=== PATIENT | male | born 1965 | race African-American/Black ===

== ENCOUNTER 2017-10-16 13:17 | Emergency (ER) | payer OTHER ==
[~2017-10-16] VITALS: Ht 190.5 cm; Wt 152.3 kg
[2017-10-16] MEDS ORDERED: LABE100 PO (13:27)
[2017-10-16] MEDS ORDERED: ASPI-891 PO (13:27)
[2017-10-16] MEDS ORDERED: DIGO-44 PO (13:27)
[2017-10-16] MEDS ORDERED: IBUPROFEN 600 MG TABLET PO ONE (15:15)
[2017-10-16 15:52] LABS: BASOPHILS % (AUTO) 0.5 % (0.0-2.0); EOSINOPHILS % (AUTO) 2.7 % (1.0-6.0); HEMATOCRIT 41.5 % (41-53); LYMPHOCYTES # (AUTO) 1.4 K/uL (1.0-4.8); LYMPHOCYTES % (AUTO) 14.4 % (22.0-44.0); MEAN CORPUSCULAR HGB CONC 33.6 G/dL (31.0-37.0); MEAN CORPUSCULAR VOLUME 83 fL (80-100); MONOCYTES % (AUTO) 9.9 % (2.0-9.0); NEUTROPHILS # (AUTO) 7.1 K/uL (1.8-7.7); NEUTROPHILS % (AUTO) 72.5 % (40.0-70.0); PLATELET COUNT (AUTO) 188 K/uL (150-450); RED BLOOD CELL COUNT(AUTO) 4.98 MIL/uL (4.50-5.90); RED CELL DISTRIBUTION WIDTH 17.4 % (11.5-14.5)
[2017-10-16 16:48] VITALS: BP 145/97
[2017-10-18 16:58] LABS: GLUCOSE,POINT OF CARE 159 MG/DL (70-110)
[2017-11-01] MEDS ORDERED: PERCT PO (12:13)
[2017-11-01] MEDS ORDERED: SPIR25 PO (12:13)
[2017-11-01] MEDS ORDERED: DIGO250T84 PO (12:13)
[2017-11-01] MEDS ORDERED: MET750 PO (12:13)
[2017-11-01] MEDS ORDERED: POTA20TA82 PO (12:13)
[2017-11-01] MEDS ORDERED: LISI-662 PO (12:13)
[2017-11-01] MEDS ORDERED: CARV25 PO (12:13)
[2017-11-01] MEDS ORDERED: ATOR40TA28 PO (12:13)
[2017-11-01] MEDS ORDERED: ALLO100T PO (12:13)
[2017-11-01] MEDS ORDERED: GLIP5 PO (12:13)
[2017-11-01] MEDS ORDERED: FURO40 PO (12:13)
[2017-11-01] MEDS ORDERED: AMLO-512 PO (12:13)
[2017-11-01] MEDS ORDERED: GABA-531 PO (12:13)
== END 2017-10-16 16:49 | disposition home or self-care (01) ==
LOC: EDUNIT# 13:17 → EMS 13:18
DX: S53.401A Unspecified sprain of right elbow, initial encounter (principal); M10.9 Gout, unspecified; E11.9 Type 2 diabetes mellitus without complications; I10 Essential (primary) hypertension; Z79.82 Long term (current) use of aspirin; X58.XXXA Exposure to other specified factors, initial encounter; Y93.89 Activity, other specified; Y92.89 Other specified places as the place of occurrence of the external cause; Y99.8 Other external cause status
CPT/HCPCS: 84550; 99285

== ENCOUNTER 2017-11-02 07:55 | Day surgery (SDC) | payer OTHER ==
[~2017-11-02] VITALS: Ht 190.5 cm; Wt 160.9 kg
[~2017-11-02 07:55] MED LIST: ALLO100T PO; AMLO-512 PO; ASPI-891 PO; ATOR40TA28 PO; CARV25 PO; DIGO250T84 PO; FURO40 PO; GABA-531 PO; GLIP5 PO; LISI-662 PO; MET750 PO; PERCT PO; POTA20TA82 PO; SPIR25 PO
[2017-11-02] MEDS ORDERED: 0.9% SODIUM CHLORIDE 10 ML SYRINGE IVP PRN (08:00)
[2017-11-02] MEDS ORDERED: METOPROLOL TARTRATE 50 MG TABLET PO PRN (08:00)
[2017-11-02] MEDS ORDERED: IOVERSOL 350 MG/ML 150 ML VIAL ONE (08:13)
[2017-11-02] MEDS ORDERED: METOPROLOL TARTRATE 50 MG TABLET ONE (08:40)
[2017-11-02 09:12] LABS: ANION GAP 6 mmol/L (8-16); CALCIUM, TOTAL 8.4 mg/dL (8.8-10.5); CARBON DIOXIDE 28 mmol/L (22-29); CHLORIDE 106 mmol/L (98-107); CREATININE 0.86 mg/dL (0.60-1.30); GLOMERULAR FILTR. RATE CALC > 60 mL/min (>60); GLUCOSE,RANDOM 126 mg/dL (70-110); POTASSIUM 3.9 mmol/L (3.5-5.1); SODIUM SERUM 140 mmol/L (136-145); UREA NITROGEN, BLOOD 16 mg/dL (7-18)
[2017-11-02] MEDS ORDERED: NITROGLYCERIN 400 MCG/SUBLINGUAL SPRAY 4.9 GM BOTTLE SL ONE ×2 (10:46→10:52)
[2017-11-02] MEDS ORDERED: METOPROLOL TARTRATE 5 MG/5 ML VIAL ONE (10:46)
[2017-11-02] MEDS ORDERED: METOPROLOL TARTRATE 5 MG/5 ML VIAL IVP ONE (10:52)
== END 2017-11-02 11:40 | disposition home or self-care (01) ==
LOC: SURGERY 07:55 → EDUNIT# 10:00 → EDSTATUS 10:00 → SURGERY 11:40
PROVIDERS: ATTEND Internal Medicine Cardiovascular Disease
DX: I25.10 Atherosclerotic heart disease of native coronary artery without angina pectoris (principal); E11.9 Type 2 diabetes mellitus without complications; I11.0 Hypertensive heart disease with heart failure; I50.9 Heart failure, unspecified; E78.00 Pure hypercholesterolemia, unspecified; M46.90 Unspecified inflammatory spondylopathy, site unspecified; M10.9 Gout, unspecified; G47.30 Sleep apnea, unspecified; F12.90 Cannabis use, unspecified, uncomplicated; I25.2 Old myocardial infarction; I48.91 Unspecified atrial fibrillation; M54.9 Dorsalgia, unspecified; Z79.899 Other long term (current) drug therapy; Z98.890 Other specified postprocedural states; Z79.01 Long term (current) use of anticoagulants; Z87.828 Personal history of other (healed) physical injury and trauma
CPT/HCPCS: 36415; 75574; 80048; 93005; J3490; Q9967

== ENCOUNTER 2017-11-15 10:09 | Emergency (ER) | payer OTHER ==
[~2017-11-15] VITALS: Ht 190.5 cm; Wt 159.1 kg
[2017-11-15 10:24] LABS: GLUCOSE,POINT OF CARE 111 MG/DL (70-110)
[2017-11-15 12:40] VITALS: BP 136/94
== END 2017-11-15 13:01 | disposition home or self-care (01) ==
LOC: EMS 10:10
DX: M79.642 Pain in left hand (principal); I10 Essential (primary) hypertension; E11.9 Type 2 diabetes mellitus without complications; Z79.899 Other long term (current) drug therapy; Z91.013 Allergy to seafood
CPT/HCPCS: 99284

== ENCOUNTER 2018-01-16 09:59 | Emergency (ER) | payer MEDICAID, OTHER ==
[~2018-01-16] VITALS: Ht 190.5 cm; Wt 157.7 kg
[2018-01-16 10:23] LABS: GLUCOSE,POINT OF CARE 196 MG/DL (70-110)
[2018-01-16] MEDS ORDERED: ACETAMINOPHEN 500 MG TABLET PO ONE (12:30)
[2018-01-16] MEDS ORDERED: KETOROLAC TROMETHAMINE 60 MG/2 ML VIAL IM ONE (12:30)
[2018-01-16 15:22] VITALS: BP 146/81
== END 2018-01-16 15:29 | disposition home or self-care (01) ==
LOC: EMS 09:59
DX: S93.401A Sprain of unspecified ligament of right ankle, initial encounter (principal); M17.11 Unilateral primary osteoarthritis, right knee; M72.2 Plantar fascial fibromatosis; E11.9 Type 2 diabetes mellitus without complications; I10 Essential (primary) hypertension; Z79.82 Long term (current) use of aspirin; Z79.899 Other long term (current) drug therapy; Z91.013 Allergy to seafood; X58.XXXA Exposure to other specified factors, initial encounter; Y93.89 Activity, other specified; Y92.89 Other specified places as the place of occurrence of the external cause; Y99.8 Other external cause status
CPT/HCPCS: 29505; 73562; 73610; 73630; 82962; 96372; 99284; J1885

== ENCOUNTER 2018-06-16 14:22 | Emergency (ER) | payer MEDICAID, OTHER ==
[~2018-06-16] VITALS: Ht 190.5 cm; Wt 159.1 kg
[2018-06-16 14:26] VITALS: BP 137/73
[2018-06-16] MEDS ORDERED: EMPA25TA PO (14:35)
[2018-06-16] MEDS ORDERED: METF-960 PO (14:35)
[2018-06-16] MEDS ORDERED: RIVA15T PO (14:35)
[2018-06-16 14:39] LABS: GLUCOSE,POINT OF CARE 158 MG/DL (70-110)
[2018-06-16] MEDS ORDERED: KETOROLAC TROMETHAMINE 60 MG/2 ML VIAL IM ONE (15:45)
[2018-06-16] MEDS ORDERED: METHOCARBAMOL 500 MG TABLET PO ONE (15:45)
== END 2018-06-16 16:19 | disposition home or self-care (01) ==
LOC: EMS 14:27
DX: S16.1XXA Strain of muscle, fascia and tendon at neck level, initial encounter (principal); M62.838 Other muscle spasm; E11.9 Type 2 diabetes mellitus without complications; I10 Essential (primary) hypertension; Z91.013 Allergy to seafood; Z79.899 Other long term (current) drug therapy; Z79.84 Long term (current) use of oral hypoglycemic drugs; X58.XXXA Exposure to other specified factors, initial encounter; Y93.89 Activity, other specified; Y92.89 Other specified places as the place of occurrence of the external cause; Y99.8 Other external cause status
CPT/HCPCS: 82962; 96372; 99283; J1885

== ENCOUNTER 2018-09-22 14:23 | Emergency (ER) | payer OTHER ==
[~2018-09-22] VITALS: Ht 190.5 cm; Wt 105.0 kg
[~2018-09-22 14:23] MED LIST changes: -ALLO100T PO; +APIX5TAB4 PO; -ASPI-891 PO; +ATOR20TA86 PO; -ATOR40TA28 PO; -CARV25 PO; +CARV25TA77 PO; -DIGO250T84 PO; +EMPA25TA PO; +FURO-151 PO; -FURO40 PO; -GABA-531 PO; -GLIP5 PO; -LISI-662 PO; +METF-960 PO; -PERCT PO; +SACU1TAB PO; +TICA90TA PO
[2018-09-22 14:59] LABS: GLUCOSE,POINT OF CARE 195 MG/DL (70-110)
[2018-09-22] MEDS ORDERED: HYDROCODONE/ACETAMINOPHEN 5-325 MG TABLET PO ONE (17:15)
[2018-09-22] MEDS ORDERED: COLCHICINE 0.6 MG TABLET PO ONE ×2 (17:15→18:45)
[2018-09-22 19:31] VITALS: BP 130/78
== END 2018-09-22 19:32 | disposition home or self-care (01) ==
LOC: EMS 14:23
DX: M10.9 Gout, unspecified (principal); M79.89 Other specified soft tissue disorders; I11.0 Hypertensive heart disease with heart failure; I50.9 Heart failure, unspecified; E11.9 Type 2 diabetes mellitus without complications; I48.91 Unspecified atrial fibrillation; F12.90 Cannabis use, unspecified, uncomplicated; Z91.013 Allergy to seafood; Z79.84 Long term (current) use of oral hypoglycemic drugs; Z79.899 Other long term (current) drug therapy

== ENCOUNTER 2020-09-14 10:37 | Emergency (ER) | payer OTHER ==
[~2020-09-14] VITALS: Ht 190.5 cm; Wt 165.9 kg
[~2020-09-14 10:37] MED LIST changes: +AMLO-258 PO; -AMLO-512 PO; -MET750 PO
[2020-09-14] MEDS ORDERED: ACETAMINOPHEN/CODEINE 300-30 MG TABLET PO ONE (13:30)
[2020-09-14 13:46] VITALS: BP 131/90
== END 2020-09-14 14:00 | disposition home or self-care (01) ==
LOC: EMS 11:03
DX: S46.912A Strain of unspecified muscle, fascia and tendon at shoulder and upper arm level, left arm, initial encounter (principal); I48.91 Unspecified atrial fibrillation; I11.0 Hypertensive heart disease with heart failure; I50.9 Heart failure, unspecified; E11.9 Type 2 diabetes mellitus without complications; F12.90 Cannabis use, unspecified, uncomplicated; Z79.899 Other long term (current) drug therapy; Z79.84 Long term (current) use of oral hypoglycemic drugs; Z91.013 Allergy to seafood; W01.0XXA Fall on same level from slipping, tripping and stumbling without subsequent striking against object, initial encounter; Y93.89 Activity, other specified; Y92.89 Other specified places as the place of occurrence of the external cause; Y99.8 Other external cause status
CPT/HCPCS: 29240; 99283

== ENCOUNTER 2023-11-24 05:26 | Day surgery (SDC) | payer OTHER ==
[2023-11-24] VITALS (12 sets, daily range): BP systolic 119–147; BP diastolic 66–97; PULSE 62–90
[~2023-11-24] VITALS: Ht 190.5 cm; Wt 163.6 kg
[~2023-11-24 05:26] MED LIST changes: +ACET-66 PO; +ALBU18HF12 IH; +ALLO300T2 PO; -AMLO-258 PO; -ATOR20TA86 PO; -EMPA25TA PO; +ICOS1CAP PO; +METF-446 PO; -METF-960 PO; +POTA-205 PO; -POTA20TA82 PO; +ROSU20TA73 PO; -SACU1TAB PO; +SACU1TAB4 PO; +SEMA2PEN SQ; +SPIR-37 PO; -SPIR25 PO; -TICA90TA PO; +VERI10TA PO
[2023-11-24] MEDS ORDERED: SODIUM CHLORIDE 0.9% 1,000 ML ONE (05:38)
[2023-11-24] MEDS: SODIUM CHLORIDE 0.9% 1,000 ML IV ONE (06:40)
[2023-11-24 06:47] LABS: INR 1.1 (0.9-1.1); PROTHROMBIN TIME 11.8 SEC (9.4-11.6)
[2023-11-24] MEDS ORDERED: VERAPAMIL HCL 2.5 MG/ML 2 ML VIAL ONE (07:01)
[2023-11-24] MEDS ORDERED: HEPARIN SODIUM 1000 UNITS/NS 1,000 ML ONE (07:01)
[2023-11-24] MEDS ORDERED: LIDOCAINE/PF 1% 30 ML VIAL ONE (07:01)
[2023-11-24] MEDS ORDERED: NITROGLYCERIN 50 MG/D5% WATER 250 ML ONE (07:01)
[2023-11-24] MEDS ORDERED: IOHEXOL 300 MG/ML 100 ML VIAL ONE (07:01)
[2023-11-24] MEDS ORDERED: SODIUM BICARBONATE 50 MEQ/50 ML VIAL ONE (07:01)
[2023-11-24 07:07] LABS: ANION GAP 10 mmol/L (8-16); CALCIUM, TOTAL 9.4 mg/dL (8.8-10.5); CARBON DIOXIDE 28 mmol/L (22-29); CHLORIDE 104 mmol/L (98-107); CREATININE 1.11 mg/dL (0.60-1.30); GLOMERULAR FILTR. RATE CALC > 60 mL/min (>60); GLUCOSE,RANDOM 101 mg/dL (70-110); SODIUM SERUM 142 mmol/L (136-145); UREA NITROGEN, BLOOD 18 mg/dL (7-18)
[2023-11-24 07:15] LABS: BASOPHILS % (AUTO) 0.7 % (0.0-2.0); EOSINOPHILS % (AUTO) 7.2 % (1.0-6.0); HEMATOCRIT 41.6 % (41-53); HEMOGLOBIN 14.2 g/dL (13.5-17.5); LYMPHOCYTES # (AUTO) 1.9 K/uL (1.0-4.8); MEAN CORPUSCULAR HEMOGLOBIN 31.5 pg (26.0-34.0); MEAN CORPUSCULAR HGB CONC 34.1 G/dL (31.0-37.0); MEAN CORPUSCULAR VOLUME 92 fL (80-100); MONOCYTES # (AUTO) 0.3 K/uL (0.1-1.0); MONOCYTES % (AUTO) 4.7 % (2.0-9.0); NEUTROPHILS # (AUTO) 3.8 K/uL (1.8-7.7); NEUTROPHILS % (AUTO) 58.4 % (40.0-70.0); PLATELET COUNT (AUTO) 139 K/uL (150-450); RED BLOOD CELL COUNT(AUTO) 4.51 MIL/uL (4.50-5.90); RED CELL DISTRIBUTION WIDTH 14.7 % (11.5-14.5); WHITE BLOOD COUNT (AUTO) 6.6 K/uL (4.5-11.0)
[2023-11-24] MEDS ORDERED: FentaNYL CITRATE PF 100 MCG/2 ML VIAL ONE (08:00)
[2023-11-24] MEDS ORDERED: MIDAZOLAM HCL 2 MG/2 ML VIAL ONE (08:01)
[2023-11-24] MEDS: VERAPAMIL HCL 2.5 MG/ML 2 ML VIAL IARTER ONE (08:29)
[2023-11-24] MEDS: LIDOCAINE 1% 30 ML/SOD BICARB 8.4% 4 ML SQ ONE (08:29)
[2023-11-24] MEDS: MIDAZOLAM HCL 2 MG/2 ML VIAL IVP ONE (08:29)
[2023-11-24] MEDS: FentaNYL CITRATE PF 100 MCG/2 ML VIAL IVP ONE (08:29)
[2023-11-24] MEDS: HEPARIN SODIUM,PORCINE 1,000 UNITS/ML 10 ML VIAL IARTER ONE (08:30)
[2023-11-24] MEDS: HEPARIN SODIUM 1000 UNITS/NS 1,000 ML IARTER ONE (08:31)
[2023-11-24] MEDS: NITROGLYCERIN/D5W 50 MG/250 ML IV BOTTLE IARTER ONE ×2 (08:31→09:05)
[2023-11-24] MEDS ORDERED: IOHEXOL 300 MG/ML 50 ML VIAL ONE (08:37)
[2023-11-24] MEDS ORDERED: CLOPIDOGREL BISULFATE 300 MG TABLET ONE ×2 (08:49)
[2023-11-24] MEDS ORDERED: ASPIRIN 325 MG TABLET ONE (08:49)
[2023-11-24] MEDS: IOHEXOL 300 MG/ML 100 ML VIAL IARTER ONE (09:03)
[2023-11-24] MEDS: HEPARIN SODIUM,PORCINE 1,000 UNITS/ML 10 ML VIAL IVP ONE ×2 (09:04→09:05)
[2023-11-24] MEDS: ASPIRIN 325 MG TABLET PO ONE (09:06)
[2023-11-24] MEDS: CLOPIDOGREL BISULFATE 300 MG TABLET PO ONE (09:06)
[2023-11-24] MEDS ORDERED: NITROGLYCERIN 0.4 MG SUBLINGUAL TABLET #25 SL PRN (09:15)
[2023-11-24] MEDS ORDERED: ONDANSETRON HCL 4 MG/2 ML VIAL IVP PRN (09:15)
[2023-11-24] MEDS ORDERED: MORPHINE SULFATE 2 MG/ML SYRINGE IVP PRN (09:15)
[2023-11-24] MEDS ORDERED: ACETAMINOPHEN 325 MG TABLET PO PRN (09:15)
[2023-11-24] MEDS ORDERED: HYDROCODONE/ACETAMINOPHEN 5-325 MG TABLET PO PRN (09:15)
[2023-11-24 14:06] LABS: GLUCOMETER DEV NAME(LOC) SDS.; GLUCOSE,POINT OF CARE 133 MG/DL (70-110)
[2023-11-24] MEDS ORDERED: CARVEDILOL 25 MG TABLET PO SCH (21:00)
[2023-11-25] MEDS ORDERED: ASPIRIN 81 MG DR TABLET PO SCH (09:00)
[2023-11-25] MEDS ORDERED: CLOPIDOGREL BISULFATE 75 MG TABLET PO SCH (09:00)
== END 2023-11-24 14:25 | disposition home or self-care (01) ==
LOC: CATHLAB 05:26
PROVIDERS: ATTEND Internal Medicine
DX: I25.10 Atherosclerotic heart disease of native coronary artery without angina pectoris (principal); I48.91 Unspecified atrial fibrillation; I25.2 Old myocardial infarction; R94.39 Abnormal result of other cardiovascular function study; R94.31 Abnormal electrocardiogram [ECG] [EKG]; J45.909 Unspecified asthma, uncomplicated; G47.30 Sleep apnea, unspecified; M51.16 Intervertebral disc disorders with radiculopathy, lumbar region; M10.9 Gout, unspecified; E78.00 Pure hypercholesterolemia, unspecified; I11.0 Hypertensive heart disease with heart failure; I50.9 Heart failure, unspecified; Z95.2 Presence of prosthetic heart valve; Z98.890 Other specified postprocedural states; Z79.899 Other long term (current) drug therapy
CPT/HCPCS: 80048; 85025; 85610; 85730; 36415; 99152; 99153; 93005; 93458; C9600; C1887; J3010; J1644; J3490 ×4; J2250; J7030; Q9967; C1874; 92920; 92928; Z7610